=== PATIENT | female | born 1995 | race Two or more races ===

== ENCOUNTER → 2024-11-27 | Day surgery (SDC) | payer OTHER ==
[2024-11-26 09:53] LABS: BASO % 0.9 % (0.1-1.2); EOS # 0.06 (0.04-0.54); EOS % 1.3 % (0.7-7.0); HEMATOCRIT 36.8 % (34.1-44.9); LYMPH % 33.2 % (19.3-53.1); MEAN CORPUSCULAR HEMOGLOBIN 33.1 pg (25.6-32.2); MONO # 0.33 (0.24-0.82); MONO % 7.3 % (4.7-12.5); NEUT # 2.57 (1.56-6.13); NEUT % 56.9 % (34.0-71.1); PLATELET COUNT 258 K/uL (163-369); RED BLOOD COUNT 3.62 M/uL (3.93-5.22)
[2024-11-26 10:01] LABS: INR 1.12; PARTIAL THROMBOPLASTIN TIME 26.9 SECONDS (22.0-34.0); PROTHROMBIN TIME 12.1 SECONDS (9.0-11.5)
[2024-11-26 10:02] LABS: URINE APPEARANCE Clear; URINE BILIRRUBIN Negative (NEGATIVE); URINE BLOOD Negative; URINE COLOR Yellow; URINE GLUCOSE Negative (NEGATIVE); URINE KETONE Negative (NEGATIVE); URINE LEUKOCYTE Negative; URINE NITRATE Negative; URINE PROTEIN Negative (NEGATIVE); URINE UROBILINOGEN 0.2 E.U./dl
[2024-11-26 10:07] LABS: URINE RBC 2.2 uL (0.0-20.8)
[2024-11-26 10:16] LABS: COVID-19 AG NEGATIVE (NEGATIVE)
[2024-11-26 10:24] LABS: URINE BACTERIA 1.2 uL (0.0-1933); URINE EPITHELIAL CELLS 0.6 uL (0.0-38.8); URINE WBC 1.2 uL (0.0-23.2)
[2024-11-26 10:57] LABS: ALBUMIN 3.7 gm/dL (3.4-5.0); BILIRUBIN TOTAL 0.24 mg/dL (0.3-1.2); CALCIUM 9.4 mg/dL (8.5-10.1); CREATININE SERUM 0.65 mg/dL (0.55-1.02); GFR 106.31; GLOBULINA 3.3 G/DL (2.4-3.5); POTASSIUM 4.55 mEq/L (3.5-5.1)
[2024-11-26 11:37] VITALS: BP 125/81
[~2024-11-27] VITALS: Ht 154.9 cm; Wt 77.1 kg
[~2024-11-27] MED LIST: CEFAZOLIN SODIUM 1,000 MG VIAL ONE; CLONAZEPAM0.5 M1 PO; FLECAINIDE ACET50 MG PO; FLUOXETINE DR90 MG; TOPROL XL25 M1 PO
== END | disposition home or self-care (01) ==
LOC: ADM 11-26 15:00 → CIR.AMB 06:00
PROVIDERS: ATTEND Surgery
DX: C50.411 Malignant neoplasm of upper-outer quadrant of right female breast (principal); C50.811 Malignant neoplasm of overlapping sites of right female breast; R59.0 Localized enlarged lymph nodes; Z91.013 Allergy to seafood; Z91.041 Radiographic dye allergy status; Z91.040 Latex allergy status; Z88.6 Allergy status to analgesic agent; N65.1 Disproportion of reconstructed breast